=== PATIENT | female | born 1955 | race Hispanic/Latino ===

== ENCOUNTER 2017-11-08 18:54 | Inpatient (IN) | payer MEDICARE ==
[~2017-11-08] VITALS: Ht 139.7 cm; Wt 58.2 kg
[2017-11-08] MEDS ORDERED: IPRATROPIUM/ALBUTEROL SULFATE 3 ML SOLUTION IH ONE (19:21)
[2017-11-08] MEDS ORDERED: SODIUM CHLORIDE 0.9% 1000ML 1,000 ML IV ONE (19:24)
[2017-11-08] MEDS ORDERED: DEXAMETHASONE SOD PHOSPHATE 10MG/ML 1ML VIAL ONE (19:25)
[2017-11-08 19:39] LABS: BASOPHILS % (AUTO) 0.4 % (0.0-5.0); EOSINOPHILS % (AUTO) 2.1 % (0.0-8.0); HEMATOCRIT 39.6 % (36-48); LYMPHOCYTES % (AUTO) 19.3 % (21.0-51.0); MEAN CORPUSCULAR HEMOGLOBIN 31.5 pg (27.0-33.0); MEAN CORPUSCULAR VOLUME 92.5 fL (79-99); MONOCYTES % (AUTO) 6.9 % (3.0-13.0); NEUTROPHILS % (AUTO) 71.3 % (40.0-77.0); NUCLEATED RED BLOOD CELLS 0.1 % (0.0-0.19); PLATELET COUNT (AUTO) 272 K/uL (130-400); RED BLOOD CELL COUNT(AUTO) 4.28 MIL/uL (4.00-5.50); RED CELL DISTRIBUTION WIDTH 13.2 % (11.0-15.5)
[2017-11-08 20:04] LABS: CREATININE 0.8 mg/dL (0.5-1.5); POTASSIUM 3.4 mmol/L (3.5-5.1)
[2017-11-08 20:07] LABS: ALBUMIN 3.3 g/dL (3.5-5.0); BILIRUBIN,DIRECT 0.1 mg/dL (0.0-0.3); BILIRUBIN,TOTAL 0.3 mg/dL (0.2-1.0); TOTAL PROTEIN, SERUM 7.9 g/dL (6.0-8.3)
[2017-11-08] MEDS ORDERED: DILTIAZEM HCL 5 MG/ML 10 ML VIAL IV ONE (20:07)
[2017-11-08] MEDS ORDERED: SODIUM CHLORIDE 0.9% 50 ML IV ONE (20:07)
[2017-11-08] MEDS ORDERED: DILTIAZEM HCL 125 MG/25 ML VIAL IV ONE (20:07)
[2017-11-08 20:37] LABS: B-TYPE NATRIURETIC PEPTIDE 241 pg/mL (0-100)
[2017-11-08] MEDS ORDERED: LIDOCAINE HCL-MPF 1% 2ML VIAL IJ PRN (23:00)
[2017-11-08] MEDS ORDERED: POTASSIUM CHLORIDE 10% ELIXIR 20 MEQ/15 ML UDCUP PO PRN (23:00)
[2017-11-08] MEDS ORDERED: POTASSIUM CHLORIDE 20MEQ/100ML 100 ML IV PRN (23:00)
[2017-11-08] MEDS ORDERED: NS IV SCH (23:00)
[2017-11-08] MEDS ORDERED: DILTIAZEM 125 MG IV SCH (23:00)
[2017-11-08] MEDS ORDERED: POTASSIUM CHLORIDE 20 MEQ ERTAB PO PRN (23:00)
[2017-11-08 23:02] VITALS: BP 118/68
[2017-11-09] MEDS ORDERED: FERR500P12 MC (00:36)
[2017-11-09] MEDS ORDERED: ASPI-555 PO (00:36)
[2017-11-09] MEDS ORDERED: APIX5TAB PO (00:36)
[2017-11-09] MEDS ORDERED: ESOM40CA54 PO (00:36)
[2017-11-09] MEDS ORDERED: ROSU20TA38 PO (00:36)
[2017-11-09] MEDS ORDERED: LOSA1TAB37 PO (00:36)
[2017-11-09] MEDS ORDERED: POTA20PA32 PO (00:36)
[2017-11-09] MEDS ORDERED: METO-391 PO (00:36)
[2017-11-09 00:58] LABS: CREATINE KINASE MB 1.3 ng/mL (0.5-3.6); CREATINE KINASE, TOTAL 62 U/L (21-232); MYOGLOBIN 55 ng/mL (10-92); TROPONIN I < 0.04 ng/mL (0.00-0.06)
[2017-11-09 03:58] VITALS: BP 113/74
[2017-11-09 06:50] LABS: MEAN CORPUSCULAR HEMOGLOBIN 31.5 pg (27.0-33.0); MEAN CORPUSCULAR HGB CONC 34.2 g/dL (32.0-36.0); PLATELET COUNT (AUTO) 273 K/uL (130-400); RED BLOOD CELL COUNT(AUTO) 4.02 MIL/uL (4.00-5.50); WHITE BLOOD COUNT (AUTO) 7.7 K/uL (4.8-10.8)
[2017-11-09 07:36] VITALS: BP 108/70
[2017-11-09 07:39] LABS: ALANINE AMINOTRANSFERASE 41 U/L (12-78); ASPARTATE AMINOTRANSFERASE 33 U/L (10-37); BILIRUBIN,TOTAL 0.4 mg/dL (0.2-1.0); CARBON DIOXIDE 29 mmol/L (21-32); CHLORIDE 101 mmol/L (101-111); CREATINE KINASE MB 1.5 ng/mL (0.5-3.6); CREATINE KINASE, TOTAL 54 U/L (21-232); CREATININE 0.8 mg/dL (0.5-1.5); GLOMERULAR FILTR. RATE CALC 78 mL/min (>60); GLUCOSE,RANDOM 167 mg/dL (70-105); MYOGLOBIN 50 ng/mL (10-92); POTASSIUM 3.6 mmol/L (3.5-5.1); SODIUM SERUM 138 mmol/L (136-145); TOTAL PROTEIN, SERUM 7.5 g/dL (6.0-8.3); TROPONIN I < 0.04 ng/mL (0.00-0.06); UREA NITROGEN, BLOOD 22 mg/dL (7-18)
[2017-11-09 07:59] LABS: LYMPHOCYTES % (MANUAL) 6 % (22-44); MAN.DIFF COMMENT-IMPRESSION MANUAL DIFFERENTIAL; PLATELET MORPHOLOGY COMMENT ADEQUATE; REACTIVE LYMPHOCYTES 3 % (0-0); SEGMENTED NEUTROPHILS % 91 % (40-70)
[2017-11-09] MEDS: **HM** TOPROL XL 50MG PO SCH ×2 (09:00→19:24)
[2017-11-09] MEDS: POTASSIUM CHLORIDE 20 MEQ ERTAB PO SCH (09:55)
[2017-11-09] MEDS: APIXABAN 5 MG TABLET PO SCH ×2 (09:55→19:24)
[2017-11-09] MEDS: ASPIRIN 81 MG EC TAB PO SCH (09:55)
[2017-11-09] MEDS: PANTOPRAZOLE SODIUM 40 MG TABLET.DR PO SCH (09:56)
[2017-11-09] MEDS: METHYLPREDNISOLONE SOD SUCC 125MG/2ML VIAL IVP SCH ×2 (09:56→20:16)
[2017-11-09] MEDS: FERROUS SULFATE 325 MG TABLET.DR PO SCH (09:56)
[2017-11-09 11:05] VITALS: BP 113/73
[2017-11-09 16:11] VITALS: BP 109/74
[2017-11-09 19:23] VITALS: BP 120/78
[2017-11-09] MEDS ORDERED: ATORVASTATIN CALCIUM 40 MG TABLET PO SCH (21:00)
[2017-11-09 23:27] VITALS: BP 111/73
[2017-11-10 03:38] VITALS: BP 114/72
[2017-11-10 07:32] VITALS: BP 120/61
[2017-11-10] MEDS: **HM** TOPROL XL 50MG PO SCH (09:00)
[2017-11-10] MEDS: PANTOPRAZOLE SODIUM 40 MG TABLET.DR PO SCH (10:30)
[2017-11-10] MEDS: METHYLPREDNISOLONE SOD SUCC 125MG/2ML VIAL IVP SCH (10:30)
[2017-11-10] MEDS: FERROUS SULFATE 325 MG TABLET.DR PO SCH (10:30)
[2017-11-10] MEDS: ASPIRIN 81 MG EC TAB PO SCH (10:30)
[2017-11-10] MEDS: APIXABAN 5 MG TABLET PO SCH (10:30)
[2017-11-10] MEDS: POTASSIUM CHLORIDE 20 MEQ ERTAB PO SCH (10:31)
== END 2017-11-10 11:32 | disposition home or self-care (01) | DRG 202 ==
LOC: EDH 18:54 → EDHIP 21:45 → 2DH 22:40
PROVIDERS: ADMIT Internal Medicine; ATTEND Internal Medicine
DX: J20.9 Acute bronchitis, unspecified (principal); I48.92 Unspecified atrial flutter; I48.91 Unspecified atrial fibrillation; I10 Essential (primary) hypertension; Z85.3 Personal history of malignant neoplasm of breast
CPT/HCPCS: 36415; 71250; 80048; 80053; 80076; 82550; 82553; 83874; 83880; 84484; 85025; 87804; 93005; 99291; J1100; J2930; J3490; J7030

== ENCOUNTER 2018-04-22 21:22 | Emergency (ER) | payer MEDICARE ==
[~2018-04-22 21:22] MED LIST: APIX5TAB PO; ASPI-555 PO; ESOM40CA54 PO; FERR500P12 MC; LOSA1TAB37 PO; METO-391 PO; POTA20PA32 PO; ROSU20TA30 PO
[2018-04-22 22:48] LABS: BASOPHILS % (AUTO) 0.6 % (0.0-5.0); EOSINOPHILS % (AUTO) 1.4 % (0.0-8.0); HEMATOCRIT 35.1 % (36-48); LYMPHOCYTES % (AUTO) 15.4 % (21.0-51.0); MEAN CORPUSCULAR HEMOGLOBIN 32.1 pg (27.0-33.0); MEAN CORPUSCULAR HGB CONC 34.6 g/dL (32.0-36.0); MEAN CORPUSCULAR VOLUME 92.8 fL (79-99); MONOCYTES % (AUTO) 6.7 % (3.0-13.0); NEUTROPHILS % (AUTO) 75.9 % (40.0-77.0); PLATELET COUNT (AUTO) 197 K/uL (130-400); RED BLOOD CELL COUNT(AUTO) 3.79 MIL/uL (4.00-5.50); RED CELL DISTRIBUTION WIDTH 13.8 % (11.0-15.5)
[2018-04-22 22:58] LABS: POTASSIUM 2.5 mmol/L (3.5-5.1)
[2018-04-22 22:59] LABS: INR 1.09 (0.85-1.15); PARTIAL THROMBOPLASTIN TIME 33.5 SEC (26.3-35.5); PROTHROMBIN TIME 11.4 SEC (9.6-11.6)
[2018-04-22] MEDS ORDERED: MAGNESIUM OXIDE 400 MG TABLET PO ONE (23:06)
[2018-04-22] MEDS ORDERED: POTASSIUM BICARB/CIT AC 25 MEQ TABLET.EFF ONE (23:06)
== END 2018-04-23 00:09 | disposition home or self-care (01) ==
LOC: EDH 21:22
DX: L03.116 Cellulitis of left lower limb (principal); I10 Essential (primary) hypertension; I48.91 Unspecified atrial fibrillation
CPT/HCPCS: 36415; 80048; 85025; 85610; 85730; 93005; 93971

== ENCOUNTER → 2018-05-04 | Outpatient (CLI) | payer MEDICARE | END | disposition home or self-care (01) | LOC: RAH 14:18 | PROVIDERS: ATTEND Family Medicine | DX: Z12.31 Encounter for screening mammogram for malignant neoplasm of breast (principal) | CPT/HCPCS: 77067 ==

== ENCOUNTER 2018-11-17 10:39 | Emergency (ER) | payer MEDICARE ==
[2018-11-17] MEDS ORDERED: KETOROLAC TROMETHAMINE 30MG/ML ONE (11:10)
[2018-11-17] MEDS ORDERED: SODIUM CHLORIDE 0.9% 500ML 500 ML IV ONE ×2 (11:10→13:40)
[2018-11-17 11:14] LABS: BASOPHILS % (AUTO) 0.2 % (0.0-5.0); EOSINOPHILS % (AUTO) 0.1 % (0.0-8.0); HEMATOCRIT 37.1 % (36-48); LYMPHOCYTES % (AUTO) 8.7 % (21.0-51.0); MEAN CORPUSCULAR HEMOGLOBIN 31.4 pg (27.0-33.0); MEAN CORPUSCULAR HGB CONC 33.6 g/dL (32.0-36.0); MEAN CORPUSCULAR VOLUME 93.3 fL (79-99); MONOCYTES % (AUTO) 7.3 % (3.0-13.0); NEUTROPHILS % (AUTO) 83.7 % (40.0-77.0); PLATELET COUNT (AUTO) 153 K/uL (130-400); RED BLOOD CELL COUNT(AUTO) 3.98 MIL/uL (4.00-5.50); RED CELL DISTRIBUTION WIDTH 13.2 % (11.0-15.5); WHITE BLOOD COUNT (AUTO) 8.8 K/uL (4.8-10.8)
[2018-11-17 11:26] LABS: CREATININE 0.8 mg/dL (0.5-1.5); POTASSIUM 3.5 mmol/L (3.5-5.1)
[2018-11-17 11:31] LABS: INR 1.09 (0.85-1.15); PARTIAL THROMBOPLASTIN TIME 39.2 SEC (26.3-35.5); PROTHROMBIN TIME 11.4 SEC (9.6-11.6)
[2018-11-17 11:40] LABS: ALBUMIN 3.2 g/dL (3.5-5.0); BILIRUBIN,DIRECT 0.2 mg/dL (0.0-0.3); BILIRUBIN,TOTAL 0.8 mg/dL (0.2-1.0); TOTAL PROTEIN, SERUM 7.2 g/dL (6.0-8.3)
[2018-11-17 12:10] LABS: APPEARANCE,URINE CLEAR (CLEAR); BILIRUBIN,URINE NEGATIVE (NEGATIVE); COLOR,URINE YELLOW (YELLOW); GLUCOSE, URINE (UA) NEGATIVE (NEGATIVE); KETONES,URINE NEGATIVE (NEGATIVE); LEUKOCYTE ESTERASE ,URINE NEGATIVE (NEGATIVE); NITRATE,URINE NEGATIVE (NEGATIVE); OCCULT BLOOD,URINE TRACE-LYSED (NEGATIVE); PH,URINE 7.5 (5.0-8.0); PROTEIN,URINE NEGATIVE (NEGATIVE); UROBILINOGEN,URINE 0.2 mg/dL (0.2-1.0)
[2018-11-17 12:37] LABS: BACTERIA,URINE Rare /HPF (None Seen); MUCUS,URINE Rare LPF (None Seen); RBC,URINE 0-1 /HPF (0-1); SQUAMOUS EPITHELIAL CELL,UR Rare /HPF (0-2); WBC,URINE 0-1 /HPF (0-1)
== END 2018-11-17 15:15 | disposition home or self-care (01) ==
LOC: EDH 10:39
DX: M54.5 Low back pain (principal); M25.551 Pain in right hip; I48.91 Unspecified atrial fibrillation; I10 Essential (primary) hypertension
CPT/HCPCS: 36415; 74176; 80048; 80076; 81001; 82550; 83690; 84484; 85025; 85610; 85730; 93005 ×2; 96374; 99284; J1885; J7040 ×2

== ENCOUNTER → 2020-06-17 | Outpatient (CLI) | payer MEDICARE ==
[~2020-06-17] MED LIST changes: +AMIO200T44 PO; -ASPI-555 PO; +CLOP75TA14 PO; +DILT180C63 PO; +FURO20TA6 PO; -LOSA1TAB37 PO; -METO-391 PO; +NIAC1CAP PO; +PRED20TA3 PO; -ROSU20TA30 PO; +ROSU20TA31 PO
== END | disposition home or self-care (01) ==
LOC: RAH 10:43
PROVIDERS: ATTEND Family Medicine
DX: Z12.31 Encounter for screening mammogram for malignant neoplasm of breast (principal)
CPT/HCPCS: 77067

== ENCOUNTER 2021-07-12 20:45 | Emergency (ER) | payer MEDICARE ==
[~2021-07-12] VITALS: Ht 149.9 cm; Wt 49.9 kg
[2021-07-12] MEDS ORDERED: GENT5DRO32 OP (21:21)
[2021-07-12 21:48] VITALS: BP 116/72
== END 2021-07-12 21:49 | disposition home or self-care (01) ==
LOC: EDH 20:45
DX: H00.012 Hordeolum externum right lower eyelid (principal); I48.91 Unspecified atrial fibrillation; Z79.01 Long term (current) use of anticoagulants; Z79.52 Long term (current) use of systemic steroids; Z79.899 Other long term (current) drug therapy

== ENCOUNTER 2022-02-06 15:43 | Emergency (ER) | payer MEDICARE ==
[~2022-02-06] VITALS: Ht 147.3 cm; Wt 47.2 kg
[~2022-02-06 15:43] MED LIST changes: +GENT5DRO32 OP
[2022-02-06 16:36] LABS: BASOPHILS % (AUTO) 0.3 % (0.0-5.0); EOSINOPHILS % (AUTO) 2.7 % (0.0-8.0); HEMATOCRIT 36.2 % (36-48); LYMPHOCYTES % (AUTO) 18.8 % (21.0-51.0); MEAN CORPUSCULAR HEMOGLOBIN 30.5 pg (27.0-33.0); MEAN CORPUSCULAR HGB CONC 32.3 g/dL (32.0-36.0); MEAN CORPUSCULAR VOLUME 94.3 fL (79-99); MONOCYTES % (AUTO) 5.5 % (3.0-13.0); NEUTROPHILS % (AUTO) 72.5 % (40.0-77.0); PLATELET COUNT (AUTO) 172 K/uL (130-400); RED BLOOD CELL COUNT(AUTO) 3.84 MIL/uL (4.00-5.50); RED CELL DISTRIBUTION WIDTH 13.3 % (11.0-15.5); WHITE BLOOD COUNT (AUTO) 6.6 K/uL (4.8-10.8)
[2022-02-06 16:47] LABS: CREATININE 0.7 mg/dL (0.5-1.5); POTASSIUM 3.6 mmol/L (3.5-5.1)
[2022-02-06 16:54] LABS: ALBUMIN 3.2 g/dL (3.5-5.0); BILIRUBIN,TOTAL 0.5 mg/dL (0.2-1.0); TOTAL PROTEIN, SERUM 6.4 g/dL (6.0-8.3)
[2022-02-06] MEDS ORDERED: ONDA4TAB10 PO (17:32)
[2022-02-06] MEDS ORDERED: BENZ-39 PO (17:32)
[2022-02-06 17:47] VITALS: BP 134/56
== END 2022-02-06 17:49 | disposition home or self-care (01) ==
LOC: EDH 15:43
DX: J10.1 Influenza due to other identified influenza virus with other respiratory manifestations (principal); Z20.822 Contact with and (suspected) exposure to COVID-19; I48.91 Unspecified atrial fibrillation; Z79.01 Long term (current) use of anticoagulants; Z79.52 Long term (current) use of systemic steroids; Z79.899 Other long term (current) drug therapy
CPT/HCPCS: 36415; 71045; 80053; 84484; 85025; 87635; 87804 ×2; 87880; 93005; 99285; C9803

== ENCOUNTER → 2023-07-06 | Outpatient (CLI) | payer MEDICARE ==
[~2023-07-06] MED LIST changes: +BENZ-39 PO; +CLOP-31 PO; -CLOP75TA14 PO; -GENT5DRO32 OP; +GENT5DRO8 OP; +ONDA4TAB10 PO; -ROSU20TA31 PO; +ROSU20TA73 PO
== END | disposition home or self-care (01) ==
LOC: RAH 07:55
PROVIDERS: ATTEND Family Medicine
DX: Z12.31 Encounter for screening mammogram for malignant neoplasm of breast (principal)
CPT/HCPCS: 77067